=== PATIENT | female | born 1960 | race Caucasian/White ===

== ENCOUNTER → 2016-06-15 | Outpatient (CLI) | payer BC ==
--- NOTE | 2016-06-15 12:48 | EST ---
DATE OF SERVICE: 06/15/2016 AGE: 56Y SEX: F HT: 67 WT: 152 lbs. Protocol Sandip: X Other: Stage: Dur. of Exercise: 15 minutes *Heart Rate Blood Pressure *Rest: 80 Rest: 141/85 * *Max. Achieved: 155 Maximum BP: 170/85 85% PMHR: 138 100% PMHR: 162 *METS: 14.1 INDICATIONS: Chest pain. MEDICATIONS: Baseline rhythm is sinus mechanism, rate of 80, normal axis and intervals. Normal electrocardiogram. Baseline blood pressure 141/85 mmHg. The patient exercised on Sandip protocol for 15 minutes reaching peak rate of 155 beats per minute, which is equal to 95% maximum predicted heart rate; peak blood pressure 170/85 mmHg. The test was terminated secondary to fatigue. There was no chest pain. Electrocardiographic monitoring revealed no evidence of diagnostic ischemic ST deviation. Rare PACs were noted. CONCLUSION: 1. Excellent exercise tolerance. 2. Normal electrocardiograph response to exercise with no evidence of exercise-induced ischemia.
== END | disposition home or self-care (01) ==
LOC: RADNMMAIN 10:32
PROVIDERS: ATTEND Internal Medicine
DX: R07.9 Chest pain, unspecified (principal)
CPT/HCPCS: 93017

== ENCOUNTER → 2016-06-16 | Outpatient (CLI) | payer BC ==
--- NOTE | 2016-06-16 09:44 | MR ---
EXAMINATION TYPE: MR lumbar spine wo/w con DATE OF EXAM: 06/16/2016 7:39 AM COMPARISON: NONE HISTORY: Lumbago with sciatica Left Side per order. Low back pain going into left buttocks and proxim al thigh for 5 months per patient. TECHNIQUE: Multiplanar, multisequence images of the lumbar spine is performed without and with IV contrast, util izing 15 mL intravenous MultiHance FINDINGS: Sagittal images of the lumbar spine show vertebral body heights to appear satisfactory. The re is grade 1 anterolisthesis of L4 on L5 measured 3 mm from posterior vertebral body margin. Multile anjel disc desiccation is present. There is mild disc space narrowing L4-L5 level. No large posterior d isc herniations are seen on sagittal images. The conus medullaris is normal in position and signal en ding at T12-L1 disc space level. The bone marrow signal intensity is within normal limits. A few sma ll scattered hemangiomas are present. No suspicious postcontrast enhancement is seen. Mild multilevel anterior spurring is noted. Axial images show the T12-L1 and L1-L2 levels to appear within normal limits. Axial images at the L2-L3 level show mild facet degenerative changes and ligament flavum hypertrophy effacing posterior lateral thecal sac on axial image 17. There is mild broad disc bulge mildly effaci ng anterior thecal sac. Bilateral neural foramina remain patent. Axial images at L3-L4 level show mild facet degenerative changes and ligament flavum hypertrophy effa cing posterior lateral thecal sac and mild broad disc bulge minimally effacing anterior thecal sac, b ilateral neural foramina are patent. Axial images at L4-L5 level show moderate facet degenerative changes and ligamentum flavum hypertroph y effacing posterior lateral thecal sac and axial image 8. There is spondylolisthesis. There is broad -based central disc protrusion. There is mild to moderate right-sided anterior inferior neural forami nal narrowing. Left-sided neural foramen is patent. Axial images at L5-S1 level show mild to moderate facet degenerative changes bilaterally, right great er than left. Spinal canal is preserved and bilateral neural foramina are patent.. IMPRESSION: Multilevel degenerative changes in the mid to lower lumbar spine as detailed above. No si gnificant disc herniation is seen to account for patient's left sided radiculopathy type symptoms how ever.
== END | disposition home or self-care (01) ==
LOC: RADMRIMAIN 06:49
PROVIDERS: ATTEND Internal Medicine
DX: M47.816 Spondylosis without myelopathy or radiculopathy, lumbar region (principal)
CPT/HCPCS: 72158; A9577

== ENCOUNTER → 2016-11-22 | Outpatient (CLI) | payer BC ==
--- NOTE | 2016-11-22 10:32 | WWHP ---
[facility] - HISTORY AND PHYSICAL DATE OF SERVICE: 11/22/2016 CHIEF COMPLAINT: The patient is here for her routine gynecologic exam and mammogram. HPI: This is a 56-year-old, G2, P2, with an LMP of 2012. The patient is without gynecologic complaints and denies any postmenopausal bleeding. PAST MEDICAL HISTORY: Sciatica. MEDICATIONS: 1. Multivitamin 1 daily. 2. Vitamin D supplement daily. ALLERGIES: No known drug allergies. 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 SOCIAL HISTORY: She denies tobacco and drug use and has 2 to 7 alcohol containing drinks per week. 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 REVIEW OF SYSTEMS: She has gained about 18 pounds over the last year and this was after losing 19 pounds the prior year. She denies respiratory, cardiac or GI problems. PHYSICAL EXAM: Blood pressure 116/73, height 5 feet 6 inches, weight 159 pounds, temperature 97.9, pulse 62. This is a well-developed, well-nourished, white female, who is alert and oriented x3. In no acute distress. HEENT is within normal limits. NECK: Supple without mass or thyromegaly. CHEST AND LUNGS: Clear to auscultation. HEART: Regular rate and rhythm. Breasts are without mass or discharge. Axillary exam is negative for adenopathy. BACK: Negative for CVA tenderness. ABDOMEN: Soft, nontender, without palpable masses. Pelvic exam, external genitalia reveals mild atrophy without lesions. Cervix and vagina reveals mild atrophy without lesions. The cervix is stenotic appearing consistent with atrophy. There is no evidence of prolapse. The uterus is mid position, nongravid size and nontender. There are no palpable adnexal masses or tenderness. Rectovaginal exam is negative for mass or tenderness and is negative for occult blood. EXTREMITIES: Nontender. IMPRESSION: A 56-year-old, menopausal female, with normal gynecologic exam. PLAN: 1. Pap smear was performed. 2. Self breast examination was discussed. 3. Mammogram will be done today. 4. Osteoporosis prevention was discussed. 5. She will return in 1 year. MMODL / IJN: [id number] /
--- NOTE | 2016-11-24 07:20 | MM ---
Reason for exam: screening (asymptomatic). Last mammogram was performed 1 year and 5 months ago. History: Patient is postmenopausal. Excisional biopsy of the right breast, 2005. Physical Findings: A clinical breast exam by your physician is recommended on an annual basis and results should be correlated with mammographic findings. MG 3D Screening Mammo W/Cad Bilateral CC and MLO view(s) were taken. Prior study comparison: June 09, 2015, bilateral MG 3d screening mammo w/cad. The breast tissue is heterogeneously dense. This may lower the sensitivity of mammography. Finding: There is a stable architectural distortion in the central position of the right breast, consistent with known excisional biopsy. There is no discrete abnormality. ASSESSMENT: Benign, BI-RAD 2 RECOMMENDATION: Routine screening mammogram of both breasts in 1 year.
== END ==
LOC: WWCWWP 09:09
PROVIDERS: ATTEND Obstetrics & Gynecology
DX: Z12.31 Encounter for screening mammogram for malignant neoplasm of breast (principal)
CPT/HCPCS: 77063; G0202

== ENCOUNTER → 2017-01-25 | Outpatient (CLI) | payer BC ==
--- NOTE | 2017-01-25 13:14 | US ---
EXAMINATION TYPE: US gallbladder DATE OF EXAM: 01/25/2017 COMPARISON: NONE CLINICAL HISTORY: R10.11 RUQ ABD PAIN. EXAM MEASUREMENTS: Liver Length: 16.7 cm Gallbladder Wall: 0.2 cm CBD: 0.2 cm Right Kidney: 9.1 x 3.8 x 4.9 cm Pancreas: wnl Liver: small isoechoic area costa hepatis 1.7 x 1.3 x 1.6 cm, rt lobe 5.3 x 6.0 isoechoic same echoge nicity as costa hepatis area Gallbladder: wnl Evidence for sonographic Turner's sign: No CBD: wnl Right Kidney: wnl Nonspecific isoechoic areas of marked by technologist centrally in the liver on background of slight heterogeneous change. I feel likely mild fatty infiltration with areas of fatty sparing. No worrisome solid or cystic masses are clearly identified. IMPRESSION: No gallstones or ultrasound evidence for acute cholecystitis.
== END | disposition home or self-care (01) ==
LOC: RADUSWWP 10:43
PROVIDERS: ATTEND Internal Medicine
DX: R10.11 Right upper quadrant pain (principal)
CPT/HCPCS: 76705

== ENCOUNTER → 2017-02-01 | Outpatient (CLI) | payer BC ==
--- NOTE | 2017-02-01 10:29 | NM ---
EXAMINATION TYPE: NM hepatobiliary w EF DATE OF EXAM: 02/01/2017 COMPARISON: 01/25/2017 HISTORY: Abdominal pain TECHNIQUE: After the intravenous administration of 5.5 mCi Tc 99m Mebrofenin hepatobiliary scintigrap hy is performed. Immediate images post injection. FINDINGS: There is satisfactory initial accumulation of tracer by the liver. The gallbladder is visualized wit hin 6 minutes. The small bowel activity is noted within 38 minutes. At one hour 8 ounces of oral en sure plus is given to mimic CCK and gallbladder ejection fraction is calculated at 74 %, in the [place] l range. Therefore there is no scintigraphic evidence of cystic or common bile duct obstruction to s uggest acute cholecystitis or gallbladder dyskinesia. IMPRESSION: 1. No scintigraphic evidence of acute cholecystitis or chronic cholecystitis. 2. No evidence of biliary dyskinesia with ejection fraction of 74%.
== END | disposition home or self-care (01) ==
LOC: RADNMMAIN 06:45
PROVIDERS: ATTEND Internal Medicine
DX: R10.84 Generalized abdominal pain (principal)
CPT/HCPCS: 78226; A9537

== ENCOUNTER → 2018-01-08 | Outpatient (CLI) | payer BC ==
[2018-01-08 15:17] VITALS: BP 117/67; PULSE 65; TEMP 97.4; BMI 23.0
--- NOTE | 2018-01-08 15:50 | P.HPOB ---
History of Present Illness H&P Date: 01/08/18 Chief Complaint: The patient is here for her routine gynecologic exam and mammogram. This is a 57-year-old within LMP of 2012. The patient is without gynecologic complaints and denies any postmenopausal bleeding. Review of Systems She's lost about 12 pounds over the last year. This was after gaining about 18 pounds after the prior year. She denies respiratory or cardiac problems. G.I. : occasional loose stools recently. She attributes this to adding protein powder to drinks. Past Medical History Past Medical History: No Reported History Additional Past Medical History / Comment(s): Sciatica. 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 History of Any Multi-Drug Resistant Organisms: None Reported Past Surgical History: Bladder Surgery (Bladder sling procedure in 2008.), Breast Surgery (Right biopsy) Additional Past Surgical History / Comment(s): monarch sling. Colonoscopy 2017 (4th). 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 - Past Family History Mother Family Medical History: No Reported History Additional Family Medical History / Comment(s): Maternal grandmother had colon cancer. Father Family Medical History: Cancer (Lymphoma) Additional Family Medical History / Comment(s): Paternal grandfather and paternal grandmother also had lymphoma. Medications and Allergies Home Medications Medication Instructions Recorded Confirmed Type Multivitamins, Thera [Multivitamin] 1 tab PO DAILY 02/15/16 01/08/18 History Allergies Allergy/AdvReac Type Severity Reaction Status Date / Time No Known Allergies Allergy Verified 01/08/18 15:13 Exam Vital Signs Temp Pulse BP 01/08/18 15:13 97.4 F L 65 117/67 Intake and Output 01/08/18 01/08/18 01/08/18 06:59 14:59 22:59 Other: Weight 66.678 kg Height 5'7", weight 147 pounds, BMI 23.0. This is a well-developed well-nourished [] female who is alert and oriented times 3 in no acute distress. HEENT: Within normal limits. NECK: Supple without mass or thyromegaly. CHEST AND LUNGS: Clear to auscultation. HEART: Regular rate and rhythm. BREASTS: Are without mass or discharge. Slight central nipple inversion is noted bilaterally. AXILLARY EXAM: Negative for adenopathy. BACK: Negative for CVA tenderness. ABDOMEN: Soft, nontender, without palpable masses. PELVIC EXAM: Normal external genitalia with mild atrophy. Cervix and vagina appear normal is mild atrophy. There is no unusual discharge. There is no evidence of prolapse. The uterus is midposition, nongravid size and nontender. There are no palpable adnexal masses or tenderness. RECTAL EXAM: rectovaginal exam is negative for mass or tenderness and is negative for occult blood. EXTREMITIES: Nontender. IMPRESSION: 1. 57-year-old menopausal female with normal gynecologic exam. PLAN: 1. Pap smear was deferred since she had a normal one last year. 2. Self breast awareness was discussed with the patient. 3. Screening mammogram will be done today. 4. Osteoporosis prevention was discussed. Will plan on repeating her bone density screening next year. 5. She will return in one year.
--- NOTE | 2018-01-09 13:25 | MM ---
Reason for exam: screening (asymptomatic). Last mammogram was performed 1 year and 2 months ago. History: Patient is postmenopausal and history of other cancer. Excisional biopsy of the right breast, 2005. Physical Findings: A clinical breast exam by your physician is recommended on an annual basis and results should be correlated with mammographic findings. MG 3D Screening Mammo W/Cad Bilateral CC and MLO view(s) were taken. Prior study comparison: November 22, 2016, bilateral MG 3d screening mammo w/cad. June 09, 2015, bilateral MG 3d screening mammo w/cad. The breast tissue is heterogeneously dense. This may lower the sensitivity of mammography. No suspicious abnormality. Post surgical change on the right breast. No significant changes when compared with prior studies. ASSESSMENT: Benign, BI-RAD 2 RECOMMENDATION: Routine screening mammogram of both breasts in 1 year.
== END | disposition home or self-care (01) ==
LOC: WWCWWP 14:53
PROVIDERS: ATTEND Obstetrics & Gynecology
DX: Z12.31 Encounter for screening mammogram for malignant neoplasm of breast (principal)
CPT/HCPCS: 77063; 77067

== ENCOUNTER → 2019-01-23 | Outpatient (CLI) | payer BC ==
[2019-01-23 08:21] LABS: Basophils # (A) 0.1 k/uL (0-0.2); Basophils % (A) 1 %; Eosinophils # (A) 0.3 k/uL (0-0.7); Eosinophils % (A) 5 %; HCT 38.1 % (34.0-46.0); HGB 12.5 gm/dL (11.4-16.0); Lymphocytes # (A) 1.1 k/uL (1.0-4.8); Lymphocytes % (A) 20 %; MCH 32.1 pg (25.0-35.0); MCHC 32.8 g/dL (31.0-37.0); MCV 97.9 fL (80.0-100.0); Monocytes # (A) 0.4 k/uL (0-1.0); Monocytes % (A) 8 %; Neutrophils # (A) 3.3 k/uL (1.3-7.7); Neutrophils % (A) 64 %; Platelet Count 262 k/uL (150-450); RBC 3.89 m/uL (3.80-5.40); RDW 12.3 % (11.5-15.5); WBC 5.2 k/uL (3.8-10.6)
[2019-01-24 05:22] LABS: African American GFR (CKD) 80.5 (60.0-200.0); Albumin 4.5 g/dL (3.80-4.90); Albumin/Globulin Ratio 1.67 (1.60-3.17); Anion Gap 11.1 mmol/L (4.00-12.00); BUN/Creat Ratio 15.56 Ratio (12.00-20.00); Calcium 9.2 mg/dL (8.7-10.3); Carbon Dioxide 26.9 mmol/L (21.6-31.8); Chol/HDL Ratio 2.54; Globulin 2.7 g/dL (1.6-3.3); LDL Cholesterol,Calculated 92.8 mg/dL (0.0-131.0); Potassium 4.1 mmol/L (3.5-5.5); Total Protein 7.2 g/dL (6.2-8.2); VLDL Calculation 10.2 mg/dL (5.00-40.00)
== END | disposition home or self-care (01) ==
LOC: LABWHC1 07:49
PROVIDERS: ATTEND Nurse Practitioner Adult Health
DX: Z00.00 Encounter for general adult medical examination without abnormal findings (principal); E55.9 Vitamin D deficiency, unspecified; E78.5 Hyperlipidemia, unspecified
CPT/HCPCS: 36415; 80053; 80061; 82306; 82607; 85025

== ENCOUNTER → 2019-04-09 | Outpatient (CLI) | payer BC ==
[2019-04-09 08:11] VITALS: BP 133/84; PULSE 61; RESP 18; TEMP 97.7
--- NOTE | 2019-04-09 08:41 | P.HPOB ---
History of Present Illness H&P Date: 04/09/19 Chief Complaint: The patient is here for her routine gynecologic exam and ma mmogram. This is a 58-year-old with an LMP of 2012. The patient is without gynecologic complaints and denies any postmenopausal bleeding. Review of Systems The patient's weight has been stable over the last year. She denies respiratory, cardiac, or G.I. problems. Past Medical History Past Medical History: No Reported History Additional Past Medical History / Comment(s): Sciatica. 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 History of Any Multi-Drug Resistant Organisms: None Reported Past Surgical History: Bladder Surgery, Breast Surgery Additional Past Surgical History / Comment(s): monarch sling. Right breast b iopsy. Colonoscopy 2017 (4th,next after 5yr). 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 - Past Family History Brother(s) Family Medical History: Cancer Additional Family Medical History / Comment(s): lymphoma Mother Family Medical History: No Reported History Additional Family Medical History / Comment(s): Maternal grandmother had colon cancer. Father Family Medical History: Cancer Additional Family Medical History / Comment(s): Lymphoma. Paternal grandfather and paternal grandmother also had lymphoma. Medications and Allergies Home Medications Medication Instructions Recorded Confirmed Type Multivitamins, Thera [Multivitamin] 1 tab PO DAILY 02/15/16 04/09/19 History Allergies Allergy/AdvReac Type Severity Reaction Status Date / Time No Known Allergies Allergy Verified 04/09/19 08:08 Exam Vital Signs Temp Pulse Resp BP Pulse Ox 04/09/19 08:08 97.7 F 61 18 133/84 100 Intake and Output 04/08/19 04/09/19 04/09/19 22:59 06:59 14:59 Other: Weight 67.585 kg Height 5 feet 7 inches, weight 149 pounds, BMI 23.3. This is a well-developed well-nourished white female who is alert and oriented times 3 in no acute distress. HEENT: Within normal limits. NECK: Supple without mass or thyromegaly. CHEST AND LUNGS: Clear to auscultation. HEART: Regular rate and rhythm. BREASTS: Are without mass or discharge. There is a slight indentation at the 12 o'clock position of the right breast consistent with her previous breast biopsy. There is slight central nipple inversion of the left nipple which was noted on previous exam. AXILLARY EXAM: Negative for adenopathy. BACK: Negative for CVA tenderness. ABDOMEN: Soft, nontender, without palpable masses. PELVIC EXAM: Normal external genitalia with mild atrophy. Cervix and vagina appear normal of mild atrophy. Cervix is somewhat stenotic consistent with atrophy. There is no unusual discharge. There is no evidence of prolapse. The uterus is midposition, nongravid size and nontender. There are no palpable adnexal masses or tenderness. RECTAL EXAM: Rectovaginal exam is negative for mass or tenderness and is negative for occult blood. EXTREMITIES: Nontender. IMPRESSION: 1. A 58-year-old menopausal female with normal gynecologic exam. PLAN: 1. Pap smear was performed. 2. Self breast awareness was discussed with the patient. 3. Screening mammogram will be done today. 4. Osteoporosis prevention was discussed. I have stressed the importance of adequate calcium, vitamin D and regular exercise. Recommended amounts of calcium and vitamin D were also discussed. Bone density screening was recommended and the order slip was given to the patient for this. 5. She was advised to return in one year for her annual well woman exam.
--- NOTE | 2019-04-10 13:24 | MM ---
Reason for exam: screening (asymptomatic). Last mammogram was performed 1 year and 3 months ago. History: Patient is postmenopausal and history of other cancer. Excisional biopsy of the right breast, 2006. Physical Findings: A clinical breast exam by your physician is recommended on an annual basis and results should be correlated with mammographic findings. MG 3D Screening Mammo W/Cad Bilateral CC and MLO view(s) were taken. Prior study comparison: January 08, 2018, bilateral MG 3d screening mammo w/cad. November 22, 2016, bilateral MG 3d screening mammo w/cad. The breast tissue is heterogeneously dense. This may lower the sensitivity of mammography. Finding: Architectural distortion in the right breast consistent with prior surgery. Increase in number of calcifications since January 08, 2018 and November 22, 2016. ASSESSMENT: Benign, BI-RAD 2 RECOMMENDATION: Routine screening mammogram of both breasts in 1 year.
--- NOTE | 2019-04-15 17:37 | P.PN ---
Progress Note - Text Progress Note Date: 04/15/19 OUTPATIENT FOLLOW-UP NOTE TEST(S)/RESULTS: test results from 04/09/2019 include negative Pap smear and benign mammogram. METHOD OF NOTIFICATION: a message with these results was left on the patient's voice mail. PATIENT COMMENTS: DIAGNOSIS: negative Pap smear and benign mammogram. DISCUSSION: PLAN: the patient is to return in one year for her annual well woman exam.
== END | disposition home or self-care (01) ==
LOC: WWCWWP 07:56
PROVIDERS: ATTEND Obstetrics & Gynecology
DX: Z12.31 Encounter for screening mammogram for malignant neoplasm of breast (principal)
CPT/HCPCS: 77063; 77067

== ENCOUNTER → 2020-04-27 | Outpatient (CLI) | payer BC ==
[2020-04-27 13:03] VITALS: BP 122/73; PULSE 71; RESP 18; TEMP 97.9
--- NOTE | 2020-04-27 13:38 | P.HPOB ---
History of Present Illness H&P Date: 04/27/20 Chief Complaint: The patient is here for her routine gynecologic exam. This is a 59-year-old with an LMP of 2012. The patient states she has noticed less body hair including less pubic hair and is wondering if this is related to hormonal changes. She is otherwise without complaints. She denies any unusual hair loss from her head. Review of Systems She has gained about 8 pounds over the past year. She denies respiratory or cardiac problems. GI: Occasional heartburn and she recently was prescribed something for this. Past Medical History Past Medical History: No Reported History Additional Past Medical History / Comment(s): Sciatica. 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 History of Any Multi-Drug Resistant Organisms: None Reported Past Surgical History: Bladder Surgery, Breast Surgery Additional Past Surgical History / Comment(s): monarch sling. Right breast biopsy. Colonoscopy 2017 (4th,next after 5yr). 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 - Past Family History Brother(s) Family Medical History: Cancer Additional Family Medical History / Comment(s): lymphoma Mother Family Medical History: No Reported History Additional Family Medical History / Comment(s): Maternal grandmother had colon cancer. Father Family Medical History: Cancer Additional Family Medical History / Comment(s): Lymphoma. Paternal grandfather and paternal grandmother also had lymphoma. Medications and Allergies Home Medications Medication Instructions Recorded Confirmed Type Multivitamins, Thera [Multivitamin] 1 tab PO DAILY 02/15/16 04/27/20 History Ascorbic Acid [Vitamin C] 500 mg PO DAILY 04/27/20 04/27/20 History Ascorbic Acid/Elderberry Fruit 1 each PO DAILY 04/27/20 04/27/20 History [Elderberry-Vit C 50-100 mg [facility]] Cholecalciferol (Vitamin D3) 125 mcg PO DAILY 04/27/20 04/27/20 History [Vitamin D3 (5000 Iu)] Omeprazole 40 mg PO DAILY 04/27/20 04/27/20 History Zinc 50 mg PO DAILY 04/27/20 04/27/20 History Allergies Allergy/AdvReac Type Severity Reaction Status Date / Time No Known Allergies Allergy Verified 04/09/19 08:08 Exam Vital Signs Temp Pulse Resp BP Pulse Ox 04/27/20 13:00 97.9 F 71 18 122/73 99 Intake and Output 04/26/20 04/27/20 04/27/20 22:59 06:59 14:59 Other: Weight 71.214 kg Height 5 feet 6 inches, weight 157 pounds, BMI 25.3. This is a well-developed well-nourished white female who is alert and oriented times 3 in no acute distress. HEENT: Within normal limits. NECK: Supple without mass or thyromegaly. CHEST AND LUNGS: Clear to auscultation. HEART: Regular rate and rhythm. BREASTS: Are without mass or discharge. There is a slight dimpled area at the 12 o'clock position of the right breast consistent with her previous breast biopsy and this is stable from her previous examination. There is slight c entral nipple inversion on the left side which is also consistent with her previous examination. AXILLARY EXAM: Negative for adenopathy. BACK: Negative for CVA tenderness. ABDOMEN: Soft, nontender, without palpable masses. PELVIC EXAM: Normal external genitalia with mild atrophy. Cervix and vagina appear normal mild atrophy. There is no unusual discharge. There is no evidence of prolapse. The uterus is midposition, nongravid size and nontender. There are no palpable adnexal masses or tenderness. RECTAL EXAM: Rectoaginal exam is negative for mass or tenderness and is negative for occult blood. EXTREMITIES: Nontender. IMPRESSION: 1. 59-year-old menopausal female with normal gynecologic exam. 2. Subjective finding of decreased body hair. This is probably related to being postmenopausal. PLAN: 1. Pap smear was deferred since she had a normal one on 04/09/2019. 2. Self breast awareness was discussed with the patient. 3. Screening mammogram is due and is scheduled for June of this year. The order slip was given to the patient for this. 4. Osteoporosis prevention was discussed. I have stressed the importance of adequate calcium, vitamin D and regular exercise. Recommended amounts of calcium and vitamin D were also discussed. Bone density testing will be done on the day of her mammogram. The order slip was given to the patient for this. 5. She is scheduled for colonoscopy in the upcoming month. 6. The patient was reassured about the decreased body hair and I believe this is probably related to the hormonal changes after menopause. 7. She was advised to return in one year for her annual well woman exam.
== END | disposition home or self-care (01) ==
LOC: WWCWWP 12:29
PROVIDERS: ATTEND Obstetrics & Gynecology
DX: Z53.9 Procedure and treatment not carried out, unspecified reason (principal)

== ENCOUNTER → 2020-06-29 | Outpatient (CLI) | payer BC ==
--- NOTE | 2020-06-29 16:30 | BD ---
EXAMINATION TYPE: Axial Bone Density DATE OF EXAM: 06/29/2020 COMPARISON: 01.18.2011 CLINICAL HISTORY: 60 YR OLD FEMALE.......ICD-10 CODE: Z78.0 POST MENOPAUSAL Height: 65.2 Weight: 151 FRAX RISK QUESTIONS: Secondary Osteoporosis: YES 3. Menopause before 45: YES RISK FACTORS HISTORY OF: Active: YES Diet low in dairy products/other sources of calcium: YES Postmenopausal woman: YES, AT ABOUT 40 YRS OLD Hyperparathyroidism: NO Adrenal Insufficiency: NO MEDICATIONS: Additional Medications: VITAMINS, CALCIUM AND VIT D Additional History: NOTHING ADDITIONAL TO ADD EXAM MEASUREMENTS: Bone mineral densitometry was performed using the [employer] System. Bone mineral density as measured about the Lumbar spine is: ----- L1-L4(G/cm2): 1.263 T Score Values are as follows: ----- L1: 1.0 ----- L2: 0.4 ----- L3: 0.3 ----- L4: 1.0 ----- L1-L4: 0.7 Bone mineral density has: Decreased -1.6% since study of: 01.18.2011 Bone mineral density about the R hip (g/cm2): 0.911 Bone mineral density about the L hip (g/cm2): 0.951 T Score values are as follows: -----R Neck: -1.0 -----L Neck: -1.0 -----R Total: -0.8 -----L Total: -0.4 Bone mineral density has: Decreased -6.6% since study of: 01.18.2011 FRAX%: THERE IS A 7.7% CHANCE FOR A MAJOR OSTEOPOROTIC FX AND A 0.5% FOR HIP......PROBABILITY FOR FX IN 10 YRS TIME IMPRESSION: Normal (Values between +1 and -1 indicate normal bone mass). However, note that measurements border o n osteopenia at both hips with T score values of -1.0. Consider repeating this study in 5 years or so kristy if there is some new clinical indication. NOTE: T-SCORE=SD OF THE YOUNG ADULT MEAN.
--- NOTE | 2020-06-30 10:48 | P.PN ---
Progress Note - Text Progress Note Date: 06/30/20 OUTPATIENT FOLLOW-UP NOTE TEST(S)/RESULTS: Bone density testing done on 06/29/2020 was normal with some decrease in bone density compared to her 2011 bone density test. METHOD OF NOTIFICATION: She was notified by phone. PATIENT COMMENTS: [] DIAGNOSIS: Normal bone density test. DISCUSSION: Her screening mammogram was also done on 06/29/2020 and the results are pending. She should get the results in the form of a letter in the mail. I have stressed the importance of getting adequate calcium, vitamin D and regular exercise. PLAN: Repeat bone density in 4-5 years. She was advised to return in one year for her annual well woman exam.
--- NOTE | 2020-06-30 12:02 | MM ---
Reason for exam: screening (asymptomatic). Last mammogram was performed 1 year and 3 months ago. History: Patient is postmenopausal and history of other cancer. Excisional biopsy of the right breast, 2006. Physical Findings: A clinical breast exam by your physician is recommended on an annual basis and results should be correlated with mammographic findings. MG 3D Screening Mammo W/Cad Bilateral CC and MLO view(s) were taken. Prior study comparison: April 09, 2019, bilateral MG 3d screening mammo w/cad. January 08, 2018, bilateral MG 3d screening mammo w/cad. The breast tissue is heterogeneously dense. This may lower the sensitivity of mammography. Finding #1: Stable architectural distortion in the right breast consistent with known excisional changes. Finding #2: There are typically benign vascular calcifications in both breasts. There is no discrete abnormality. ASSESSMENT: Benign, BI-RAD 2 RECOMMENDATION: Routine screening mammogram of both breasts in 1 year.
== END | disposition home or self-care (01) ==
LOC: RADMAMWWP 07:03
PROVIDERS: ATTEND Obstetrics & Gynecology
DX: Z12.31 Encounter for screening mammogram for malignant neoplasm of breast (principal); Z78.0 Asymptomatic menopausal state; M81.8 Other osteoporosis without current pathological fracture
CPT/HCPCS: 77063; 77067; 77080

== ENCOUNTER 2021-01-18 08:20 | Day surgery (SDC) | payer BC ==
[2021-01-14 08:17] VITALS: BMI 23.0
[~2021-01-18 08:20] MED LIST: LACTATED RINGERS 1,000 ML IV SCH
[2021-01-18 08:53] VITALS: TEMP 97.8
[2021-01-18] MEDS ORDERED: LACTATED RINGERS 1,000 ML IV ONE (08:53)
[2021-01-18] MEDS ORDERED: LIDOCAINE 1% INJ 10MG/ML (20 ML MDV) ONE (09:43)
[2021-01-18] MEDS ORDERED: PROPOFOL 10 MG/ML 20 ML VIAL IV ONE (09:43)
--- NOTE | 2021-01-18 09:47 | P.GSHP ---
History of Present Illness H&P Date: 01/18/21 Chief Complaint: GERD 60-year-old female known to our service. Underwent upper endoscopy in August. Was found to have a moderate sized hiatal hernia with a long segment of Martinez's esophagus with some inflammation. Biopsy results showed some atypia. Doing well since starting antiacid therapy on a regular basis. No symptoms currently. Past Medical History Past Medical History: GERD/Reflux Additional Past Medical History / Comment(s): Martinez's esophagus, Covid infection June 2020,Sciatica. History of Any Multi-Drug Resistant Organisms: None Reported Past Surgical History: Bladder Surgery, Breast Surgery Additional Past Surgical History / Comment(s): monarch sling. Right breast biopsy. Colonoscopy 2016 (4th,next after 5yr),marlee cataracts Past Anesthesia/Blood Transfusion Reactions: No Reported Reaction Smoking Status: Never smoker - Past Family History Brother(s) Family Medical History: Cancer Additional Family Medical History / Comment(s): lymphoma Mother Family Medical History: No Reported History Additional Family Medical History / Comment(s): Maternal grandmother had colon cancer. Father Family Medical History: Cancer Additional Family Medical History / Comment(s): Lymphoma. Paternal grandfather and paternal grandmother also had lymphoma. Medications and Allergies Home Medications Medication Instructions Recorded Confirmed Type Ascorbic Acid [Vitamin C] 500 mg PO DAILY 04/27/20 01/14/21 History Ascorbic Acid/Elderberry Fruit 1 each PO DAILY 04/27/20 01/14/21 History [Elderberry-Vit C 50-100 mg Chw] Cholecalciferol (Vitamin D3) 125 mcg PO DAILY 04/27/20 01/14/21 History [Vitamin D3 (5000 Iu)] Omeprazole 40 mg PO DAILY 04/27/20 01/14/21 History Zinc 50 mg PO DAILY 04/27/20 01/14/21 History Allergies Allergy/AdvReac Type Severity Reaction Status Date / Time No Known Allergies Allergy Verified 01/14/21 08:09 Surgical - Exam Vital Signs Temp Pulse Resp BP Pulse Ox 97.8 F 68 18 154/72 98 01/18/21 08:52 01/18/21 08:52 01/18/21 08:52 01/18/21 08:52 01/18/21 08:52 Physical exam: General: Well-developed, well-nourished HEENT: Normocephalic, sclerae nonicteric Abdomen: Nontender, nondistended Extremities: No edema Neuro: Alert and oriented Assessment and Plan (1) Barretts esophagus Narrative/Plan: Will proceed with upper endoscopy Current Visit: Yes Status: Acute Code(s): K22.70 - MARTINEZ'S ESOPHAGUS WITHOUT DYSPLASIA SNOMED Code(s): 379524013
--- NOTE | 2021-01-18 09:57 | P.PCN ---
Date of Procedure: 01/18/21 Procedure(s) Performed: Preoperative Dx: Mendoza's esophagus Postoperative Dx: Gastritis, moderate sized hiatal hernia, long segment Mendoza's esophagus with mild inflammatory changes Procedure: EGD with Bx Anesthesia: Sedation Endoscopist: Dr. Ann Specimens: Antrum, Mendoza's esophagus Endoscopic Procedure: The patient was on the endoscopy table in the left decubitus position. The Olympus gastroscope was inserted into the oropharynx and passed under direct visualization to the region of the third portion of the duodenum. From that point the scope was slowly withdrawn inspecting all surfaces carefully. There were no neoplastic inflammatory or polypoid lesions throughout the duodenum. The pylorus was widely patent. The stomach was carefully inspected. There was a moderate size hiatal hernia. The GE junction was present 5-6 cm above the diaphragmatic hiatus. Above the GE junction there was noted be a long segment of Mendoza's esophagus measuring 6 cm in length. There was minimal inflammatory changes at this time. Circumferential biopsies took place every 1-2 cm throughout the length of the Mendoza's esophagus. The proximal esophagus appeared normal. The patient was then taken to the recovery room in stable condition per anesthesia guidelines. Recommendations: Await biopsy results. Continue daily antiacid therapy.
[2021-01-18 10:04] VITALS: RESP 16
[2021-01-18 10:19] VITALS: BP 119/77; PULSE 64
== END 2021-01-18 10:34 | disposition home or self-care (01) ==
LOC: ORWHC2ENDO 08:20
PROVIDERS: ATTEND Surgery
DX: K22.70 Barrett's esophagus without dysplasia (principal); K29.70 Gastritis, unspecified, without bleeding; K21.9 Gastro-esophageal reflux disease without esophagitis; K44.9 Diaphragmatic hernia without obstruction or gangrene; Z86.16 Personal history of COVID-19; Z87.19 Personal history of other diseases of the digestive system
CPT/HCPCS: 43239; J2001; J2704; 88305

== ENCOUNTER → 2021-07-12 | Outpatient (CLI) | payer BC ==
[2021-07-12 11:36] VITALS: BP 135/85; PULSE 68; RESP 12; TEMP 97.5
--- NOTE | 2021-07-12 12:09 | P.HPOB ---
History of Present Illness H&P Date: 07/12/21 Chief Complaint: The patient is here for her routine gynecologic exam and ma mmogram. This is a 61-year-old with an LMP of 2012. The patient is without gynecologic complaints and denies any postmenopausal bleeding. Review of Systems The patient has lost 5 pounds over the last year and this has been intentional. She denies respiratory, cardiac, or G.I. problems. Past Medical History Past Medical History: GERD/Reflux Additional Past Medical History / Comment(s): Mendoza's esophagus, Covid infection June 2020,Sciatica. 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 History of Any Multi-Drug Resistant Organisms: None Reported Past Surgical History: Bladder Surgery, Breast Surgery Additional Past Surgical History / Comment(s): monarch sling. Right breast biopsy. 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 - Past Family History Brother(s) Family Medical History: Cancer Additional Family Medical History / Comment(s): lymphoma Mother Family Medical History: No Reported History Additional Family Medical History / Comment(s): Maternal grandmother had colon cancer. Father Family Medical History: Cancer Additional Family Medical History / Comment(s): Lymphoma. Paternal grandfather and paternal grandmother also had lymphoma. Medications and Allergies Home Medications Medication Instructions Recorded Confirmed Type Ascorbic Acid [Vitamin C] 500 mg PO DAILY 04/27/20 07/12/21 History Ascorbic Acid/Elderberry Fruit 1 each PO DAILY 04/27/20 07/12/21 History [Elderberry-Vit C 50-100 mg [facility]] Cholecalciferol (Vitamin D3) 125 mcg PO DAILY 04/27/20 07/12/21 History [Vitamin D3 (5000 Iu)] Omeprazole 40 mg PO DAILY 04/27/20 07/12/21 History Zinc 50 mg PO DAILY 04/27/20 07/12/21 History Allergies Allergy/AdvReac Type Severity Reaction Status Date / Time No Known Allergies Allergy Verified 07/12/21 11:30 Exam Vital Signs Temp Pulse Resp BP Pulse Ox 04/26/22 11:32 97.5 F L 68 12 135/85 99 Intake and Output 07/11/21 07/12/21 07/12/21 22:59 06:59 14:59 Other: Weight 68.946 kg Height 5 feet 7 inches, weight 152 pounds, BMI 23.8. This is a well-developed well-nourished white female who is alert and oriented times 3 in no acute distress. HEENT: Within normal limits. NECK: Supple without mass or thyromegaly. CHEST AND LUNGS: Clear to auscultation. HEART: Regular rate and rhythm. BREASTS: Are without mass or discharge. AXILLARY EXAM: Negative for adenopathy. BACK: Negative for CVA tenderness. ABDOMEN: Soft, nontender, without palpable masses. PELVIC EXAM: Normal external genitalia with mild atrophy. Cervix and vagina appear normal with mild atrophy. The cervix is somewhat stenotic secondary to atrophy. There is no unusual discharge. There is no evidence of prolapse. The uterus is midposition, nongravid size and nontender. There are no palpable adnexal masses or tenderness. RECTAL EXAM: Rectovaginal exam is negative for mass or tenderness and is negative for occult blood. EXTREMITIES: Nontender. IMPRESSION: 1. 61-year-old menopausal female with normal gynecologic exam. PLAN: 1. Pap smear cotest was performed. If this is negative, we will plan on discontinuing Pap smears. 2. Self breast awareness was discussed with the patient. We have also discussed symptoms associated with inflammatory breast cancer. 3. Screening mammogram will be done today. 4. Osteoporosis prevention was discussed. I have stressed the importance of adequate calcium, vitamin D and regular exercise. Recommended amounts of calcium and vitamin D were also discussed. She had a normal bone density test in June 2020. We will plan on repeating this in approximately 2024. 5. She has received the [employer] Covid vaccination. She has had a mild case of Covid last year. She is not interested in getting the booster at this time. 6. She was advised to return in one year for her annual well woman exam.
--- NOTE | 2021-07-13 13:36 | MM ---
Reason for exam: screening (asymptomatic). Last mammogram was performed 1 year ago. History: Patient is postmenopausal and history of other cancer. Excisional biopsy of the right breast, 2005. Physical Findings: A clinical breast exam by your physician is recommended on an annual basis and results should be correlated with mammographic findings. MG 3D Screening Mammo W/Cad Bilateral CC and MLO view(s) were taken. Prior study comparison: June 29, 2020, bilateral MG 3d screening mammo w/cad. April 09, 2019, bilateral MG 3d screening mammo w/cad. The breast tissue is heterogeneously dense. This may lower the sensitivity of mammography. Finding #1: There is stable architectural distortion in the anterior, middle position of the right breast consistent with known excision changes. Finding #2: There are typically benign vascular calcifications in the left breast. There is no discrete abnormality. ASSESSMENT: Benign, BI-RAD 2 RECOMMENDATION: Routine screening mammogram of both breasts in 1 year.
== END ==
LOC: WWCWWP 11:20
PROVIDERS: ATTEND Obstetrics & Gynecology
DX: Z01.419 Encounter for gynecological examination (general) (routine) without abnormal findings (principal); Z12.31 Encounter for screening mammogram for malignant neoplasm of breast; Z80.0 Family history of malignant neoplasm of digestive organs; K21.9 Gastro-esophageal reflux disease without esophagitis
CPT/HCPCS: 77063; 77067

== ENCOUNTER 2023-01-09 09:13 | Day surgery (SDC) | payer BC ==
[~2023-01-09 09:13] MED LIST changes: +LIDOCAINE 1% (10MG/ML) FOR IV START INTRADERMA PRN
[2023-01-09 09:57] VITALS: TEMP 98.1
[2023-01-09] MEDS ORDERED: PROPOFOL 10 MG/ML 20 ML VIAL IV ONE (10:22)
[2023-01-09] MEDS ORDERED: LIDOCAINE 1% INJ 10MG/ML (20 ML MDV) ONE (10:22)
--- NOTE | 2023-01-09 10:27 | P.GSHP ---
History of Present Illness H&P Date: 01/09/23 Chief Complaint: Martinez's esophagus, GERD 62-year-old female with chronic reflux. Patient with history of Martinez's esophagus. Last EGD 2 years ago. Still taking daily antiacids. No dysphagia. Past Medical History Past Medical History: GERD/Reflux Additional Past Medical History / Comment(s): Martinez's esophagus, covid infection June 2020, sciatica. History of Any Multi-Drug Resistant Organisms: None Reported Past Surgical History: Bladder Surgery, Breast Surgery Additional Past Surgical History / Comment(s): monarch sling. Right breast biopsy EGDs, colonoscopy 2020, BL cataracts Past Anesthesia/Blood Transfusion Reactions: No Reported Reaction Smoking Status: Never smoker - Past Family History Brother(s) Family Medical History: Cancer Additional Family Medical History / Comment(s): lymphoma Mother Family Medical History: No Reported History Additional Family Medical History / Comment(s): Maternal grandmother had colon cancer. Father Family Medical History: Cancer Additional Family Medical History / Comment(s): Lymphoma. Paternal grandfather and paternal grandmother also had lymphoma. Medications and Allergies Home Medications Medication Instructions Recorded Confirmed Type Omeprazole 20 mg PO QAM 04/27/20 01/09/23 History Acetylcysteine [Nac] 500 mg PO TID 01/08/23 01/09/23 History Multi Immune 1 tab PO QAM 01/08/23 01/08/23 History Multivit with Calcium,Iron,Min 1 tab PO DAILY 01/08/23 01/08/23 History [Women's Multivitamin] Allergies Allergy/AdvReac Type Severity Reaction Status Date / Time ibuprofen Allergy Severe Swelling Verified 01/09/23 09:37 Surgical - Exam Vital Signs Temp Pulse Resp BP Pulse Ox 98.1 F 62 16 116/72 100 01/09/23 09:44 01/09/23 09:44 01/09/23 09:44 01/09/23 09:44 01/09/23 09:44 Physical exam: General: Well-developed, well-nourished HEENT: Normocephalic, sclerae nonicteric Abdomen: Nontender, nondistended Extremities: No edema Neuro: Alert and oriented Assessment and Plan (1) Barretts esophagus Narrative/Plan: Will proceed with upper endoscopy at this time. Current Visit: No Status: Acute Code(s): K22.70 - MARTINEZ'S ESOPHAGUS WITHOUT DYSPLASIA SNOMED Code(s): 790063110
--- NOTE | 2023-01-09 10:37 | P.PCN ---
Date of Procedure: 01/09/23 Procedure(s) Performed: Preoperative Dx: Mendoza's esophagus Postoperative Dx: Gastritis, hiatal hernia, Mendoza's esophagus with small esophageal ulcer Procedure: EGD with Bx Anesthesia: Sedation Endoscopist: Dr. Ann Specimens: Antrum, Mendoza's Endoscopic Procedure: The patient was on the endoscopy table in the left decubitus position. The Olympus gastroscope was inserted into the oropharynx and passed under direct visualization to the region of the third portion of the duodenum. From that point the scope was slowly withdrawn inspecting all surfaces carefully. There were no neoplastic inflammatory or polypoid lesions throughout the duodenum. The pylorus was widely patent. The stomach was carefully inspected. There was mild diffuse gastritis present. A biopsy of the antrum took place to rule out H. pylori. Retroflexion revealed a small moderate sized hiatal hernia. The GE junction was present about 2-3 cm above the diaphragmatic hiatus. The distal esophagus again revealed changes of Mendoza's esophagus. The Mendoza's esophagus and a length of 5-6 cm. There was a single small superficial erosion of the esophagus right at the GE junction. This was included with our Mendoza's esophagus biopsies. Multiple biopsies of the Mendoza's esophagus took place. The remainder the esophagus appear normal. The patient was then taken to the recovery room in stable condition per anesthesia guidelines. Recommendations: Await biopsies results. Continue antiacid therapy.
[2023-01-09 11:16] VITALS: BP 138/86; PULSE 72; RESP 18
== END 2023-01-09 11:19 | disposition home or self-care (01) ==
LOC: ORWHC2ENDO 09:13
PROVIDERS: ATTEND Surgery
DX: K29.50 Unspecified chronic gastritis without bleeding (principal); K44.9 Diaphragmatic hernia without obstruction or gangrene; K22.70 Barrett's esophagus without dysplasia; K21.9 Gastro-esophageal reflux disease without esophagitis; Z80.0 Family history of malignant neoplasm of digestive organs; Z86.16 Personal history of COVID-19; Z87.19 Personal history of other diseases of the digestive system; Z79.899 Other long term (current) drug therapy; Z88.6 Allergy status to analgesic agent
CPT/HCPCS: 88305; 43239; J2001; J2704

== ENCOUNTER → 2023-08-22 | Outpatient (CLI) | payer MEDICARE ==
[2023-08-22 08:13] VITALS: BP 130/84; PULSE 58; RESP 18; TEMP 97.7
--- NOTE | 2023-08-22 08:38 | P.HPOB ---
History of Present Illness H&P Date: 08/22/23 Chief Complaint: The patient is here for her routine gynecologic exam and ma mmogram. This is a 63-year-old with an LMP of 2012. The patient is without gynecologic complaints and denies any postmenopausal bleeding. Review of Systems The patient has gained 11 pounds over the last year. She denies respiratory, cardiac, or G.I. problems. Past Medical History Past Medical History: GERD/Reflux Additional Past Medical History / Comment(s): Mendoza's esophagus, sciatica. 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 History of Any Multi-Drug Resistant Organisms: None Reported Past Surgical History: Bladder Surgery, Breast Surgery Additional Past Surgical History / Comment(s): monarch sling. Right breast biopsy, EGDs, colonoscopy 2020(next after 10yr), BL cataracts Past Anesthesia/Blood Transfusion Reactions: No Reported Reaction Past Psychological History: No Psychological Hx Reported Smoking Status: Never smoker Past Alcohol Use History: Occasional Past Drug Use History: None Reported - Past Family History Brother(s) Family Medical History: Cancer Additional Family Medical History / Comment(s): lymphoma Mother Family Medical History: No Reported History Additional Family Medical History / Comment(s): Maternal grandmother had colon cancer. Father Family Medical History: Cancer Additional Family Medical History / Comment(s): Lymphoma. Paternal grandfather and paternal grandmother also had lymphoma. Medications and Allergies Home Medications Medication Instructions Recorded Confirmed Type Multivit with Calcium,Iron,Min 1 tab PO DAILY 01/08/23 08/22/23 History [Women's Multivitamin] Omeprazole [PriLOSEC] 40 mg PO -BRKFST #90 cap 01/09/23 08/22/23 Rx Allergies Allergy/AdvReac Type Severity Reaction Status Date / Time ibuprofen Allergy Severe Swelling Verified 08/22/23 08:10 Exam Vital Signs Temp Pulse Resp BP Pulse Ox 08/22/23 08:11 97.7 F 58 L 18 130/84 98 Intake and Output 08/21/23 08/22/23 08/22/23 22:59 06:59 14:59 Other: Weight 73.936 kg Height 5 feet 6 inches, weight 163 pounds, BMI 26.3. This is a well-developed well-nourished white female who is alert and oriented times 3 in no acute distress. HEENT: Within normal limits. NECK: Supple without mass or thyromegaly. CHEST AND LUNGS: Clear to auscultation. HEART: Regular rate and rhythm. BREASTS: Are without mass or discharge. AXILLARY EXAM: Negative for adenopathy. BACK: Negative for CVA tenderness. ABDOMEN: Soft, nontender, without palpable masses. PELVIC EXAM: Normal external genitalia with mild atrophy. Cervix and vagina appear normal with mild to moderate atrophy. There is no unusual discharge. There is no evidence of prolapse. The uterus is midposition, nongravid size and nontender. There are no palpable adnexal masses or tenderness. RECTAL EXAM: Rectovaginal exam is negative for mass or tenderness and is negative for occult blood. EXTREMITIES: Nontender. IMPRESSION: 1. 63-year-old menopausal female with normal gynecologic exam. PLAN: 1. Pap smears have been discontinued. 2. Self breast awareness was discussed with the patient. We have also discussed symptoms associated with inflammatory breast cancer. 3. Screening mammogram will be done today. 4. Osteoporosis prevention was discussed. I have stressed the importance of adequate calcium, vitamin D and regular exercise. Recommended amounts of calcium and vitamin D were also discussed. Bone density test will be done today. 5. The patient was advised to return in 1-2 years for her well woman examination.
--- NOTE | 2023-08-22 18:21 | BD ---
EXAMINATION TYPE: Axial Bone Density DATE OF EXAM: 08/22/2023 CLINICAL HISTORY: 63 years old Female. ICD-10 CODE: Z01.419 YEARLY Z12.31 SCREENING MAMMOGRAM Height: 5 ft 6 in Weight: 162 FRAX RISK QUESTIONS: Alcohol (3 or more units per day): no Family History (Parent hip fracture): no Glucocorticoids (More than 3mos): no (Ex: prednisone, prednisolone, methylprednisolone, dexamethasone, and hydrocortisone). History of Fracture in Adulthood: yes Secondary Osteoporosis: 1. Type 1 Diabetes: no 2. Hyperthyroidism: no 3. Menopause before 45: yes 4. Malnutrition: no 5. Chronic liver disease: no Rheumatoid Arthritis: no Current Tobacco Use: no RISK FACTORS HISTORY OF: Surgery to Spine/Hip(right/left)/Wrist (right/left): no When: MEDICATIONS: Thyroid Medications: none Osteoporosis Medications: none EXAM MEASUREMENTS: Bone mineral densitometry was performed using the [employer] System. Bone mineral density as measured about the Lumbar spine is: ----- L1-L4(G/cm2): 1.196 T Score Values are as follows: ----- L1: 0.4 ----- L2: 0.0 ----- L3: 0.2 ----- L4: -0.2 ----- L1-L4: 0.1 Z Score Values are as follows: ----- L1: 1.7 ----- L2: 1.3 ----- L3: 1.5 ----- L4: 1.1 ----- L1-L4: 1.4 Bone mineral density has: decreased -10.3 % since study of: 2020 Bone mineral density about the R hip (g/cm2): 0.871 Bone mineral density about the L hip (g/cm2): 0.877 T Score values are as follows: -----R Neck: -1.2 -----L Neck: -1.2 -----R Total: -0.9 -----L Total: -0.6 Z Score values are as follows: -----R Neck: 0.1 -----L Neck: 0.1 -----R Total: 0.1 -----L Total: 0.4 Bone mineral density has: decreased -1.8 % since study of: 2020 FRAX%s: The graph provided illustrates a 8.4 % chance for a major osteoporotic fx and a 0.7% chance f or the hips probability for fx in 10 years time. IMPRESSION: Osteopenia (T Score between -2.5 and -1). There is slightly increased risk of fracture and the patient may be considered for treatment. Re-Screen 2-5 years. NOTE: T-SCORE=SD OF THE YOUNG ADULT MEAN.
--- NOTE | 2023-08-23 20:56 | MM ---
Reason for Exam: Screening (asymptomatic). Last mammogram was performed 2 year(s) and 2 month(s) ago. Patient History: Menarche at age 10. First Full-Term at age 19. Postmenopausal. Other cancer. 2006, Excisional Biopsy on the Right side. Risk Values: June 5 year model risk: 1.8%. NCI Lifetime model risk: 6.6%. Prior Study Comparison: 04/09/2019 Bilateral Screening Mammogram, [facility]. 06/29/2020 Bilateral Screening Mammogram, [facility]. 07/12/2021 Bilateral Screening Mammogram, [facility]. Tissue Density: The breasts are heterogeneously dense, which may obscure small masses. Findings: Analyzed By CAD. Post excisional changes on the right. Areas of bilateral asymmetric densities remain unchanged. There is no suspicious group of microcalcifications or new suspicious mass in either breast. Overall Assessment: Benign, BI-RAD 2 Management: Screening Mammogram of both breasts in 1 year. . Patient should continue monthly self-breast exams. A clinical breast exam by your physician is recommended on an annual basis. This exam should not preclude additional follow-up of suspicious palpable abnormalities. Note on June scores and lifetime risk: 1. A June score greater than 3% is considered moderate risk. If this is the case, consider specialist referral to assess eligibility for a risk reducing agent. 2. If overall lifetime risk for the development of breast cancer is 20% or higher, the patient may qualify for future screening with alternating mammogram and breast MRI. Electronically signed and approved by: Renee Solomon M.D. Radiologist
== END ==
LOC: WWCWWP 07:50
PROVIDERS: ATTEND Obstetrics & Gynecology
DX: Z12.31 Encounter for screening mammogram for malignant neoplasm of breast (principal); M85.80 Other specified disorders of bone density and structure, unspecified site; Z78.0 Asymptomatic menopausal state; Z88.6 Allergy status to analgesic agent
CPT/HCPCS: 77063; 77067; 77080

== ENCOUNTER → 2024-03-10 | Outpatient (CLI) | payer MEDICARE ==
--- NOTE | 2024-03-10 17:50 | US ---
EXAMINATION TYPE: US kidneys/renal and bladder DATE OF EXAM: 03/10/2024 COMPARISON: Gallbladder ultrasound 01/25/2017 CLINICAL INDICATION: Female, 63 years old with history of N28.9 DISORDER OF KIDNEY; Pt states abnorma l labs TECHNIQUE: Grayscale imaging of the bilateral kidneys and urinary bladder: FINDINGS: EXAM MEASUREMENTS: Right Kidney: 9.4 x 3.9 x 4.9 cm Left Kidney: 9.7 x 4.5 x 4.9 cm Right Kidney: No hydronephrosis or masses seen Left Kidney: No evidence of hydro, upper and lower poles difficult to visualize due to overlying chantell l gas Bladder: wnl Bilateral Jets seen: No There is no evidence for hydronephrosis at this point in time. Cortical medullary differentiation is maintained bilaterally. No nephrolithiasis is seen. No masses are identified. The urinary bladder i s anechoic. The ureteral jets are not identified. IMPRESSION: No hydronephrosis or nephrolithiasis. [facility], , 03/10/2024 5:48 PM
== END | disposition home or self-care (01) ==
LOC: RADUSWWP 16:06
PROVIDERS: ATTEND Internal Medicine
DX: N28.9 Disorder of kidney and ureter, unspecified (principal)
CPT/HCPCS: 76770